=== PATIENT | female | born 1970 | race Caucasian/White ===

== ENCOUNTER 2022-02-13 10:51 | Emergency (ER) | payer BC | END 2022-02-13 15:11 | disposition left against medical advice (07) | LOC: ER 10:51 | DX: Z00.8 Encounter for other general examination (principal); Z53.21 Procedure and treatment not carried out due to patient leaving prior to being seen by health care provider | CPT/HCPCS: 93005 ==

== ENCOUNTER 2024-02-09 10:18 | Inpatient (IN) | payer BC ==
[~2024-02-09] VITALS: Ht 165.1 cm; Wt 72.0 kg
[2024-02-09 14:06] LABS: BASOPHILS % (AUTO) 0.5 % (0-1); EOSINOPHILS # (AUTO) 0.1 X10'3 (0-0.9); EOSINOPHILS % (AUTO) 1.3 % (0-6); HEMATOCRIT 42.6 % (35.0-45.0); HEMOGLOBIN 14.4 g/dl (12.0-16.0); LYMPHOCYTES # (AUTO) 2.2 X10'3 (1.1-4.8); LYMPHOCYTES % (AUTO) 26.3 % (21-51); MEAN CORPUSCULAR HEMOGLOBIN 30.9 PG (27.0-31.0); MEAN CORPUSCULAR HGB CONC 33.7 g/dL (33.0-36.5); MEAN CORPUSCULAR VOLUME 91.7 FL (78-98); MEAN PLATELET VOLUME 7.6 FL (7.4-10.4); MONOCYTES # (AUTO) 0.5 X10'3 (0-0.9); MONOCYTES % (AUTO) 5.9 % (2-12); NEUTROPHILS # (AUTO) 5.5 X10'3 (1.8-7.7); PLATELET COUNT 305 X10'3 (140-440); RED BLOOD COUNT 4.65 X10'6 (4.20-5.60); RED CELL DISTRIBUTION WIDTH 12.2 % (11.5-14.5); WHITE BLOOD COUNT 8.4 X10'3 (4.5-11.0)
[2024-02-09 14:13] LABS: ALBUMIN 3.6 G/DL (3.4-5.0); ANION GAP 7 (8-16); BLOOD UREA NITROGEN 14 MG/DL (7-18); BUN/CREATININE RATIO 14.6 (10.0-20.0); CALCIUM 9.3 MG/DL (8.5-10.1); CHLORIDE 102 MMOL/L (99-107); CREATININE 0.96 MG/DL (0.40-0.90); GLUCOSE 121 MG/DL (70-104); POTASSIUM 3.8 MMOL/L (3.5-5.1); PRO BRAIN NATRIURETIC PEPTIDE < 30 PG/ML (0-125); SODIUM 138 MMOL/L (135-145); TOTAL CARBON DIOXIDE 28.7 MMOL/L (24-32); eCRCL 61 ML/MIN; eGFR 61 ML/MIN
[2024-02-09] MEDS: albuterol 2.5 MG/3 ML nebule NEB ONE (15:09)
[2024-02-09 15:14] VITALS: PULSE 81; RESP 16; O2SAT 91
[2024-02-09 15:25] VITALS: PULSE 94; RESP 18; O2SAT 91
[2024-02-09] MEDS: CefTRIAXone/D5W-Rocephin 1gm 50 ML IV STA (15:44)
[2024-02-09] MEDS ORDERED: ondansetron/PF 4mg/2ml inj IV PRN (15:45)
[2024-02-09] MEDS ORDERED: potassium Cl 40MEQ/1/2NS 520ml 520 ML IV PRN (15:45)
[2024-02-09] MEDS ORDERED: potassium Cl 20 mEq SR tablet PO PRN ×2 (15:45)
[2024-02-09] MEDS ORDERED: mag hydrox/Alum hydrox/simeth 30ml oral suspension PO PRN (15:45)
[2024-02-09] MEDS ORDERED: acetaminophen 325mg tablet PO PRN (15:45)
[2024-02-09] MEDS ORDERED: magnesium hydroxide 30ml (MOM) UD suspension PO PRN (15:45)
[2024-02-09] MEDS ORDERED: magnesium Cl slow-release 64mg tablet PO PRN (15:45)
[2024-02-09] MEDS ORDERED: magnesium 2GM in 50ml NS 50 ML IV PRN (15:45)
[2024-02-09] MEDS ORDERED: ipratropium/albuterol 3ml nebule NEB PRN (15:45)
[2024-02-09] MEDS ORDERED: magnesium 4gm in 100ml NS 100 ML IV PRN (15:45)
[2024-02-09] MEDS ORDERED: iohexol 350MG/ML 100ml bottle IV ONE (15:59)
[2024-02-09 16:12] LABS: MAGNESIUM 2.2 MG/DL (1.5-2.4)
[2024-02-09 16:19] LABS: HEMOGLOBIN A1C 5.4 % (4.5-6.2)
[2024-02-09] MEDS: normal saline 1000ml 1,000 ML IV SCH (17:17)
[2024-02-09] MEDS: methylPREDNISolone sod succ 125mg/2ml vial IV ONE (17:33)
[2024-02-09 19:54] VITALS: PULSE 89; RESP 18; O2SAT 92
[2024-02-09] MEDS: heparin, porcine 5000 units/ml vial SQ SCH (20:00)
[2024-02-09] MEDS: K and/or MAG REPLACEMENT MC SCH (20:00)
[2024-02-09] MEDS: docusate sod 100mg capsule PO SCH (20:00)
[2024-02-09 20:04] LABS: BILIRUBIN,URINE NEGATIVE (Neg); CLARITY,URINE SLIGHTLY CLOUDY (Clear); COLOR,URINE STRAW (Yellow); GLUCOSE, URINE NEGATIVE (Neg); KETONES,URINE NEGATIVE (Neg); LEUKOCYTE ESTERASE ,URINE NEGATIVE (Neg); NITRITES, URINE NEGATIVE (Neg); OCCULT BLOOD,URINE NEGATIVE (Neg); PH,URINE 6.5 (4.8-8.0); PROTEIN,URINE NEGATIVE (Neg); UROBILINOGEN,URINE 0.2 E.U/dL (0.2-1.0)
[2024-02-09] MEDS: methylPREDNISolone sod succ 125mg/2ml vial IV SCH (20:14)
[2024-02-09 20:16] LABS: UA COLLECTION TYPE CLN CATCH MIDSTREAM
[2024-02-09 20:17] LABS: BACTERIA,URINE 1+ /HPF (Neg); RBC,URINE NONE SEEN /HPF (0-2); SQUAMOUS EPITHELIAL CELL,UR MANY /LPF (FEW)
[2024-02-09] MEDS ORDERED: NO HOME MEDS (22:27)
[2024-02-09 23:00] VITALS: RESP 18; O2SAT 92
[2024-02-09] MEDS: zolpidem 5mg tablet PO ONE (23:59)
[2024-02-10 02:00] VITALS: BP 104/52; PULSE 89; RESP 18; TEMP 98.1; O2SAT 94
[2024-02-10 07:19] VITALS: BP 120/77; PULSE 95; RESP 16; TEMP 98.3; O2SAT 91
[2024-02-10] MEDS: CefTRIAXone/D5W-Rocephin 1gm 50 ML IV SCH (07:22)
[2024-02-10 07:24] LABS: BASOPHILS % (AUTO) 0.1 % (0-1); EOSINOPHILS % (AUTO) 0 % (0-6); HEMATOCRIT 44.3 % (35.0-45.0); HEMOGLOBIN 14.9 g/dl (12.0-16.0); LYMPHOCYTES # (AUTO) 1.4 X10'3 (1.1-4.8); LYMPHOCYTES % (AUTO) 17.6 % (21-51); MEAN CORPUSCULAR HEMOGLOBIN 30.9 PG (27.0-31.0); MEAN CORPUSCULAR HGB CONC 33.7 g/dL (33.0-36.5); MEAN CORPUSCULAR VOLUME 91.5 FL (78-98); MEAN PLATELET VOLUME 7.7 FL (7.4-10.4); MONOCYTES # (AUTO) 0.1 X10'3 (0-0.9); MONOCYTES % (AUTO) 1.3 % (2-12); NEUTROPHILS # (AUTO) 6.4 X10'3 (1.8-7.7); PLATELET COUNT 354 X10'3 (140-440); RED BLOOD COUNT 4.84 X10'6 (4.20-5.60); RED CELL DISTRIBUTION WIDTH 12.3 % (11.5-14.5); WHITE BLOOD COUNT 7.9 X10'3 (4.5-11.0)
[2024-02-10 08:02] LABS: ALANINE AMINOTRANSFERASE 21 U/L (12-78); ALBUMIN 3.8 G/DL (3.4-5.0); ALBUMIN/GLOBULIN RATIO 0.8 (1.1-1.5); ALKALINE PHOSPHATASE 97 IU/L (46-116); ANION GAP 13 (8-16); ASPARTATE AMINO TRANSFERASE 14 U/L (10-37); BILIRUBIN,TOTAL 0.3 MG/DL (0.1-1.0); BLOOD UREA NITROGEN 15 MG/DL (7-18); CALCIUM 9.5 MG/DL (8.5-10.1); CHLORIDE 101 MMOL/L (99-107); CHOL/HDL RATIO 5.2 (0.00-4.99); CHOLESTEROL 338 MG/DL (0-200); CREATININE 0.94 MG/DL (0.40-0.90); GLUCOSE 141 MG/DL (70-104); HDL CHOLESTEROL 65 MG/DL (35-60); LDL CHOLESTEROL 226 MG/DL (50-100); MAGNESIUM 2.3 MG/DL (1.5-2.4); POTASSIUM 4.2 MMOL/L (3.5-5.1); SODIUM 140 MMOL/L (135-145); TOTAL CARBON DIOXIDE 25.6 MMOL/L (24-32); TOTAL PROTEIN 8.6 G/DL (6.4-8.2); TRIGLYCERIDES 73 MG/DL (20-135); eCRCL 62 ML/MIN; eGFR 62 ML/MIN
[2024-02-10 09:27] VITALS: PULSE 118; RESP 16; O2SAT 94
[2024-02-10 10:51] VITALS: BP 140/92; PULSE 92; RESP 16; TEMP 97.8; O2SAT 92
[2024-02-10] MEDS ORDERED: PRED10TA23 PO (11:48)
[2024-02-10] MEDS ORDERED: LACT1CAP26 PO (11:48)
[2024-02-10] MEDS ORDERED: CEFD300C3 PO (11:48)
== END 2024-02-10 13:15 | disposition home or self-care (01) | DRG 189 ==
LOC: ER 10:18 → ED HOLD 15:50 → ORTHO 4S 22:25
PROVIDERS: ADMIT Family Medicine; ATTEND Family Medicine
PROC: B32T1ZZ Computerized Tomography (CT Scan) of Left Pulmonary Artery using Low Osmolar Contrast (ICD-10-PCS; principal; 2024-02-09)
PROC: B3201ZZ Computerized Tomography (CT Scan) of Thoracic Aorta using Low Osmolar Contrast (ICD-10-PCS; 2024-02-09)
PROC: B32S1ZZ Computerized Tomography (CT Scan) of Right Pulmonary Artery using Low Osmolar Contrast (ICD-10-PCS; 2024-02-09)
DX: J96.01 Acute respiratory failure with hypoxia (principal); J18.9 Pneumonia, unspecified organism; J44.0 Chronic obstructive pulmonary disease with (acute) lower respiratory infection; E78.5 Hyperlipidemia, unspecified; I11.0 Hypertensive heart disease with heart failure; I50.9 Heart failure, unspecified; Z88.0 Allergy status to penicillin
CPT/HCPCS: 36415; 71275; 80048; 80053; 80061; 81001; 83036; 83605; 83735; 83880; 84484; 85025; 87040; 87081; 93005; 94640; 94760; 96365; 99285; A4615; G0378; J0696; J2919; J3490; J7030; Q9967